=== PATIENT | female | born 1990 | race Caucasian/White ===

== ENCOUNTER 2018-10-23 09:26 | Day surgery (SDC) | payer OTHER ==
[~2018-10-23 09:26] MED LIST: LIDOCAINE 2% (SDV) 5 ML INJ; PROPOFOL 200 MG INJ
[2018-10-23] MEDS ORDERED: SOD CHLORIDE 0.9% 1,000 ML IV (10:30)
[2018-10-23] MEDS ORDERED: CEFAZOLIN 2 GM/50 ML (PMX) 50 ML IVPB (10:30)
[2018-10-23] MEDS ORDERED: PROPOFOL 100 ML (10:58)
[2018-10-23] MEDS ORDERED: BUPIVACAINE 0.25%/EPI (MDV) 50 ML VIAL INJ (11:15)
[2018-10-23] MEDS ORDERED: BUPIVACAINE 0.25% (MPF) 30 ML INJ (11:30)
[2018-10-23] MEDS ORDERED: MIDAZOLAM 1 MG/ML 2 ML INJ (11:49)
[2018-10-23] MEDS ORDERED: FENTAnyl 50 MCG/ML VIAL (11:50)
[2018-10-23] MEDS ORDERED: CEFAZOLIN 1 GM INJ (12:30)
[2018-10-23] MEDS: LIDOCAINE 1%/EPI 30 ML INJ (12:44)
[2018-10-23] MEDS ORDERED: IBUPROFEN 600 MG TAB PO (13:00)
[2018-10-23] MEDS ORDERED: KETOROLAC 30 MG INJ IV (13:00)
[2018-10-23] MEDS ORDERED: DIPHENHYDRAMINE 50 MG INJ IV (13:00)
[2018-10-23] MEDS ORDERED: FENTAnyl 50 MCG/ML VIAL IV ×3 (13:00)
[2018-10-23] MEDS ORDERED: ONDANSETRON 4 MG INJ IV ×2 (13:00)
[2018-10-23] MEDS ORDERED: OXYCODONE/ACETAMINOPHEN (5/325) TAB PO ×2 (13:00)
[2018-10-23] MEDS ORDERED: hydrALAzine 20 MG INJ IV (13:00)
[2018-10-23] MEDS ORDERED: EPHEDrine SULFATE 50 MG/5 ML SYG IV (13:00)
[2018-10-23] MEDS ORDERED: MIDAZOLAM 1 MG/ML 2 ML INJ IV (13:00)
[2018-10-23] MEDS ORDERED: LABETALOL HCL 20MG INJ IV (13:00)
[2018-10-23] MEDS ORDERED: MEPERIDINE 25 MG INJ IV (13:00)
[2018-10-23] MEDS ORDERED: ALBUTEROL 0.083% (NEB) 2.5 MG/3 ML AMP HHN (13:00)
== END 2018-10-23 13:48 | disposition home or self-care (01) ==
LOC: SDS 09:26
DX: D22.5 Melanocytic nevi of trunk (principal); R22.31 Localized swelling, mass and lump, right upper limb
CPT/HCPCS: 11402; 88305